=== PATIENT | male | born 1950 | race African-American/Black ===

== ENCOUNTER 2020-02-21 20:40 | Emergency (ER) | payer BC ==
[~2020-02-21] VITALS: Ht 177.8 cm; Wt 117.9 kg
[~2020-02-21 20:40] MED LIST: ASPIR 8181 MG PO; BENICAR20 MG PO; CARVEDILOL25 MG PO; GLIPIZIDE XL5 MG PO; LOW DOSE ASPIRI81 M1 PO; METFORMIN PO; NITROSTAT0.3 MG SL; NORCO 5-325 TA1 EACH PO; ROBAXIN 750 MG750 M1 PO; TRADJENTA5 MG; VIAGRA PO
[2020-02-21] MEDS ORDERED: TRADJENTA5 MG (20:52)
[2020-02-21] MEDS ORDERED: VICTOZA0.6 MG/0.1 SUBQ (20:52)
[2020-02-21] MEDS ORDERED: KEFLEX500 M1 PO (21:05)
[2020-02-21 21:35] VITALS: BP 132/70
== END 2020-02-21 21:36 | disposition home or self-care (01) ==
LOC: M.ERS 20:40
DX: S61.211A Laceration without foreign body of left index finger without damage to nail, initial encounter (principal); I10 Essential (primary) hypertension; E11.9 Type 2 diabetes mellitus without complications; Z85.46 Personal history of malignant neoplasm of prostate; W26.0XXA Contact with knife, initial encounter; Y93.89 Activity, other specified; Y92.89 Other specified places as the place of occurrence of the external cause; Y99.8 Other external cause status

== ENCOUNTER 2021-11-26 15:48 | Emergency (ER) | payer BC ==
[~2021-11-26] VITALS: Ht 177.8 cm; Wt 113.4 kg
[~2021-11-26 15:48] MED LIST changes: +KEFLEX500 M1 PO; +VICTOZA0.6 MG/0.1 SUBQ
[2021-11-26 15:50] VITALS: BP 143/80
== END 2021-11-26 16:20 | disposition left against medical advice (07) ==
LOC: M.ERS 15:48
DX: K59.00 Constipation, unspecified (principal); R10.84 Generalized abdominal pain; R11.2 Nausea with vomiting, unspecified; Z53.21 Procedure and treatment not carried out due to patient leaving prior to being seen by health care provider